=== PATIENT | female | born 1980 | race Caucasian/White ===

== ENCOUNTER 2020-02-07 09:23 | Outpatient (CLI) | payer BC, SELFPAY ==
--- NOTE | 2020-02-07 10:22 | ECG_ITS ---
Measurements Intervals [place] Rate: 88 P: 49 AR: 120 QRS: 43 QRSD: 77 T: 46 QT: 357 QTc: 433 Interpretive Statements SINUS RHYTHM NORMAL ECG Electronically Signed On 02-07-2020 10:31:13 CDT by Ervin Resendiz D.O.
[2020-02-07 10:36] LABS: Blood Urea Nitrogen 11 mg/dL (7-17); Calcium 9.2 mg/dL (8.4-10.2); Carbon Dioxide 22 mmol/L (22-30); Chloride 109 mmol/L (98-107); Estimated Glomerular Filt Rate > 60; Glucose 112 mg/dL (65-105); Potassium 3.6 mmol/L (3.4-5.0); Sodium 139 mmol/L (137-145)
== END 2020-02-07 09:24 | disposition home or self-care (01) ==
LOC: ANHLAB 09:25
PROVIDERS: PCP Family Medicine; Visit Provider Anesthesiology
DX: Z79.899 Other long term (current) drug therapy (principal); Z98.890 Other specified postprocedural states
CPT/HCPCS: 36415; 80048; 93005

== ENCOUNTER 2020-02-13 00:12 | Outpatient (CLI) | payer BC, SELFPAY ==
[2020-02-13 15:58] LABS: SARS-CoV-2 RNA PCR Negative
== END 2020-02-13 00:13 | disposition home or self-care (01) ==
LOC: ANHCOVIDDT 00:12
PROVIDERS: PCP Family Medicine; Visit Provider Obstetrics & Gynecology
DX: Z01.818 Encounter for other preprocedural examination (principal); Z11.59 Encounter for screening for other viral diseases
CPT/HCPCS: 87635; C9803; U0003

== ENCOUNTER 2020-02-15 00:53 | Day surgery (SDC) | payer BC, SELFPAY ==
[2020-02-03 10:45] VITALS: BMI 41.5
[2020-02-15] VITALS (11 sets, daily range): BP systolic 109–131; BP diastolic 60–91; PULSE 61–105; RESP 9–24; TEMP 36–36.6; O2SAT 94–99; BMI 43.4
[2020-02-15] MEDS: LACTATED RINGERS 1,000 ML 30 ML IV CONT ×2 (07:15→10:02)
--- NOTE | 2020-02-15 07:15 | PM.IMHP ---
H&P: HPI History of Present Illness Chief complaint: Menorrhagia/Desires Sterilization Narrative: Mora Puente is a 39 year old female Para 2 with satisfied parity and desire for permanent sterilization. She has a long history of menorrhagia. She has been on control pills and it has helped some but periods still heavy. She declines IUD. She desires endometrial ablation. She has had a recent normal endometrial biopsy. She declines all other non-permanent forms of control. Declines vasectomy. Discussed different types of sterilization and she desires the bilateral salpingectomy. Review of Systems Review of Systems: All systems reviewed & are unremarkable except as noted in HPI and below Constitutional: Constitutional: Reports no additional constitutional complaints Cardiovascular: Cardiovascular: Denies chest pain and Denies dyspnea Respiratory: Respiratory: Reports no additional respiratory complaints, Reports cough, Denies dyspnea and Reports other Gastrointestinal: Gastrointestinal: Denies abdominal pain Genitourinary: Genitourinary: Reports no additional female genitourinary complaints, Reports as per HPI, Denies dyspareunia, Denies vaginal discharge, Denies vaginal dryness, Denies vaginal odor and Denies vaginal pruritus Psychiatric: Psychiatric: Reports no additional psychiatric complaints Hematologic/Lymphatic: Hematologic/Lymphatic: Reports no additional hematologic/lymphatic complaints [facility] Past Medical History Medical History (Updated 02/15/20 @ 08:24 by Mayo Mcmahan MD) Anxiety Encounter for sterilization Menorrhagia Sterilization consult Vaginal delivery Surgical History Surgical History History of cardiac radiofrequency ablation Social History Social History Smoking status: Never smoker Second hand tobacco smoke exposure: No Alcohol intake: current Meds Home Medications and Allergies Home Medications Medication Instructions Recorded Confirmed Type bupropion HCl 300 mg 24 hr tablet, 300 mg PO QAM #90 tablet 12/05/19 02/03/20 Rx extended release drospirenone (contraceptive) 4 mg 4 mg PO DAILY #3 packet 12/13/19 02/03/20 Rx (28) tablet alprazolam 0.5 mg tablet 0.5 mg PO TID PRN #30 tablet 01/17/20 02/03/20 Rx bupropion HCl 150 mg 24 hr tablet, 150 mg PO QAM #90 tablet 01/17/20 02/03/20 Rx extended release spironolactone 25 mg tablet 25 mg PO DAILY #90 tablet 01/25/20 02/03/20 Rx Allergies Allergy/AdvReac Type Severity Reaction Status Date / Time morphine Allergy Unknown Vomiting Verified 02/15/20 07:27 Exam Const: General: healthy appearing, no acute distress, alert and awake Nutritional Appearance: well nourished Orientation/consciousness: oriented to person, oriented to place, oriented to time and patient oriented x3 Limitations: no limitations HENMT: Head: normal to inspection Ears: hearing grossly normal bilaterally Eyes: General: appearance normal, both eyes and all related structures Resp: Effort & Inspection: normal respiratory effort and other Auscultation: clear to auscultation bilaterally Cardio: Rate: regular rate Rhythm: regular rhythm GI: Inspection: normal to inspection GI Palp: Yes No hepatosplenomegaly present Rectal Exam: visual inspection normal : General: Yes bladder normal to palpation External Female Exam: normal external appearance and normal appearance of the urethra Speculum Exam - Vagina: normal appearance of the vagina Speculum Exam - Cervix: normal appearance of the cervix Bimanual exam- vagina & uterus: normal bimanual exam, uterine size normal, bladder normal to palpation, consistency normal, non-tender and no cervical motion tenderness Bimanual Exam- Adnexa, other: no masses, No adnexal tenderness and cystocele OB/external & speculum: external exam normal Skin: General skin exam: normal color Neuro:
--- NOTE | 2020-02-15 07:53 | WPDANESEPPF ---
Anes - Initial Pre Proc Eval Procedure: Operation Date: 02/15/20 08:30 Proposed Procedures p Laparoscopic Bilateral Salpingectomy, Hysteroscopy Dilation and Curettage, Cris Endometrial Ablation, Possible Myosure - Mayo Mcmahna MD Date/Time: 02/15/20 07:53 Surgeon: Mayo Mcmahan MD Pre Op Diagnosis: Menorrhagia/Desires Sterilization Patient Data Age: 39 Gender: F Height: 5 ft 1 in Weight: 104.2 kg Allergies Allergy/AdvReac Type Severity Reaction Status Date / Time morphine Allergy Unknown Vomiting Verified 02/15/20 07:27 Home Medications Medication Instructions Recorded Confirmed Type bupropion HCl 300 mg 24 hr tablet, 300 mg PO QAM #90 tablet 12/05/19 02/15/20 Rx extended release drospirenone (contraceptive) 4 mg 4 mg PO DAILY #3 packet 12/13/19 02/15/20 Rx (28) tablet alprazolam 0.5 mg tablet 0.5 mg PO TID PRN #30 tablet 01/17/20 02/15/20 Rx bupropion HCl 150 mg 24 hr tablet, 150 mg PO QAM #90 tablet 01/17/20 02/15/20 Rx extended release spironolactone 25 mg tablet 25 mg PO DAILY #90 tablet 01/25/20 02/15/20 Rx Patient hx anesthesia problems: none Family hx anesthesia problems: none PMFSH Past Medical History Medical History Anxiety Menorrhagia Sterilization consult Vaginal delivery Surgical History Surgical History History of cardiac radiofrequency ablation Family History Family History Father Hypertension Family history of diabetes mellitus in first degree relative Family history of cardiovascular disease Grandparent Cerebrovascular accident, Onset Age: 73 Family history of cardiovascular disease Mother Asthma Sibling Family history of mental disorder Family history of bipolar disorder Other Depression Diabetes mellitus Social History Social History Smoking status: Never smoker Second hand tobacco smoke exposure: No Alcohol intake: current Anes - Eval Final PreProcedure Day of Procedure 06/10/20 07:53 Patient weight: morbidly obese Heart: regular rate and rhythm Lungs: clear to auscultation Airway: Mallampati scale class II Neurological: alert and oriented Last oral intake: >/= 8 hours ASA classification: III Emergent: no Anesthesia type and monitoring: general ETT and standard monitoring Informed Consent: The patient's anesthetic plan and its attendant risks and benefits were discussed with the patient/family/POA. Questions were solicited and answers provided to the satisfaction of the patient/family/POA.
[2020-02-15] MEDS: ceFAZolin 2 GM/D5W 50 ML 2 GM/50 ML BAG IVPB (08:47)
[2020-02-15] MEDS: KETOROLAC 30 MG/ML VIAL (*BKC) IV PUSH (09:49)
--- NOTE | 2020-02-15 10:14 | PM.PROC ---
Procedure Note - Detailed Date of procedure: 02/15/20 Pre-op diagnosis: Menorrhagia/Desires Sterilization Procedure performed: 1. Laparoscopic bilateral salpingectomy. 2. Laparoscopic lysis of adhesions. 3. Cris endometrial ablation. 4. Diagnostic hysteroscopy. Description of procedure: After informed consent was obtained patient was taken to the operating room and general endotracheal anesthesia was administered. She was placed in low lithotomy need prep prepped sterile fashion. Attention was turned to the vagina speculum inserted single-tooth tenaculum placed on anterior lip of the cervix. [place] uterine manipulator placed into the cervical canal. The speculum was removed. Attention was then turned to the abdomen. With sterile gloves a vertical incision was made at the umbilicus and a Veress needle was inserted into the abdomen confirmation into the abdomen obtained with free flow of fluid and normal peritoneal pressures. A pneumoperitoneum of 15 mm per mercury was obtained. The 5 mm port was inserted under laparoscopic visualization. Patient was placed in Trendelenburg position. Attention was turned to the left side of the abdomen and a 5 mm port was inserted under laparoscopic visualization. The pelvic organs were visualized. Attention was turned to the right side of the abdomen and another 5 mm port was inserted under laparoscopic visualization. Using the LigaSure the right fallopian tube was excised to near the entrance to the uterus. This was removed through the port. There was a band of adhesion of the mid left fallopian tube attached to the left sidewall which the adhesion was lysed and this mobilized the distal fallopian tube. Attention was then turned to the left fallopian tube which was grabbed at the distal end and cauterized from the mesosalpinx to within a cm of the entrance to the entrance to the uterus. The fallopian tube was removed through the 5 mm port. Hemostasis was noted at both sites. Patient was taken out of Trendelenburg position the pneumoperitoneum was released and the skin incisions were closed in a subcuticular fashion with 4 O Vicryl. Attention was then turned to vagina. Speculum was inserted. Single-tooth tenaculum placed on the anterior lip of the cervix. The uterus was sounded to 8 cm. The cervix was dilated to an 8 Barnes dilator. The cervical length was 3cm. The uterine length 5cm. The hysteroscope was inserted into the cavity. The findings were a normal uterine cavity. The hysteroscope was removed. The Cris ablation instrument was inserted into the cavity. Cavity assessment was performed and confirmed intact. The ablation was enabled. After 120 seconds the Cris stopped. The ablation instrument was removed. The hysteroscope was inserted and there was noted to be good eschar with the cavity. The hysteroscope was removed the single-tooth tenaculum was removed hemostasis was noted at the tenaculum site. Sponge count correct. The patient taken to recovery in stable condition. Anesthesia: GETA Surgeon: Mayo Mcmahan MD Estimated blood loss (mL): 5 Drains: No Packing: No Pathology: yes (Right and left fallopian tube) Complications: No immediate complications Condition: stable Disposition: PACU Findings: Uterus fallopian tubes and ovaries normal. Scar tissue of the distal left fallopian tube to left sidewall. Normal uterine cavity. Good eschar noted post ablation.
[2020-02-15] MEDS: ONDANSETRON INJ 4 MG/2 ML VIAL IV PUSH (10:41)
[2020-02-15] MEDS: SCOPOLAMINE 1.5 MG PATCH TRANSDERM (10:54)
== END 2020-02-15 13:01 | disposition home or self-care (01) ==
PROVIDERS: PCP Family Medicine; Visit Provider Obstetrics & Gynecology
PROC: 0UDB8ZZ Extraction of Endometrium, Via Natural or Artificial Opening Endoscopic (ICD-10-PCS; CPT 58558; principal; 2020-02-15 08:30)
DX: Z30.2 Encounter for sterilization (principal); N92.0 Excessive and frequent menstruation with regular cycle; N73.6 Female pelvic peritoneal adhesions (postinfective); E66.01 Morbid (severe) obesity due to excess calories; Z68.41 Body mass index [BMI] 40.0-44.9, adult; Z88.6 Allergy status to analgesic agent
CPT/HCPCS: 58661; 58353; 58555; 88302; A9270; J0131; J0690; J1100; J1200; J1885; J2250; J2405; J3010; J7120

== ENCOUNTER 2021-08-15 16:46 | Emergency (ER) | payer BC, SELFPAY ==
[2021-08-15 17:15] VITALS: BP 112/73; PULSE 95; RESP 20; TEMP 36.6; O2SAT 100
--- NOTE | 2021-08-15 17:34 | ED.EYEPROB ---
HPI - Eye Problem General Chief complaint: Eye Problems Stated complaint: Lt Eye Irritation History of Present Illness HPI Narrative: This a 41-year-old female that presents to the urgent care complaining of left eye pain states that she felt like she had eyelash in her eye it has been bothering her all day. Patient states that it hurts when she closes her eye and when she blinks her eyes. Patient denies wearing contact states that she wears glasses Related Data Allergies Allergy/AdvReac Type Severity Reaction Status Date / Time morphine Allergy Intermediate Vomiting Verified 08/15/21 17:33 Review of Systems Review of Systems: left eye hurts feels like something is in it. All systems reviewed & are unremarkable except as noted in HPI and below PMFSH Past Medical History Medical History Anxiety Encounter for sterilization Menorrhagia Sterilization consult Vaginal delivery Surgical History Surgical History History of bilateral salpingectomy History of cardiac radiofrequency ablation History of endometrial ablation Family History Family History Father Hypertension Family history of diabetes mellitus in first degree relative Family history of cardiovascular disease Grandparent Cerebrovascular accident, Onset Age: 73 Family history of cardiovascular disease Mother Asthma Sibling Family history of mental disorder Family history of bipolar disorder Other Depression Diabetes mellitus Social History Social History (Updated 07/30/21 @ 15:26 by Krystle Travis [facility]) Second hand tobacco smoke exposure: No Alcohol intake: current Comments At time as signature, I have reviewed and agree with nursing past medical, social, surgical and family history. Please see nursing chart for further information. There is no relevant family history pertinent to the presenting complaint. Exam Narrative: GENERAL:Well-appearing, well-nourished, and in no acute distress. HEAD:Normocephalic EYES: PERRLA left erythema ENT: Nares clear, no rhinorrhea or epistaxis. Mucous membranes moist. CHEST: . No respiratory distress. EXTREMITIES: Normal range of motion. No edema. SKIN: Warm, dry, no rash. NEURO: No focal deficits. Alert and oriented x3. After eye exam she has a corneal abrasion and conjunctival Vitas Course Vital Signs Vital signs: Vital Signs Temperature 97.9 F 08/15/21 17:15 Pulse Rate 95 08/15/21 17:15 Respiratory Rate 20 08/15/21 17:15 Blood Pressure 112/73 08/15/21 17:15 Pulse Oximetry 100 08/15/21 17:15 Temperature 97.9 F 08/15/21 17:15 Pulse Rate 95 08/15/21 17:15 Respiratory Rate 20 08/15/21 17:15 Blood Pressure 112/73 08/15/21 17:15 Pulse Oximetry 100 08/15/21 17:15 Procedures FB Removal Eye Foreign Body #1: Foreign Body Removal Date: 08/15/21 Foreign Body Removal Time: 17:30 Time Out performed: Yes Location: eye (L) Topical anesthetic used: tetracaine Evidence of corneal penetration: Yes Technique: irrigation and eye wash bottle Procedure performed under: direct visualization with magnification and slit-lamp Post-procedure medication: topical anesthetic Patient tolerated procedure: well and no complications Foreign Body Removal Narrative: Noted noted in patient tolerated well MDM - Eye Problem Differential Diagnosis Differential diagnosis: Likely corneal abrasion, conjunctivitis, acute iritis, periorbital cellulitis, subconjunctival hemorrhage and corneal ulcer Discharge Plan Discharge Clinical Impression: Scleral disorder Corneal abrasion Qualifiers: Encounter type: initial encounter Laterality: left Qualified Code(s): S05.02XA - Injury of conjunctiva and corneal abrasion without foreign body, left eye, initial encounter
== END 2021-08-15 18:04 | disposition home or self-care (01) ==
PROVIDERS: Emergency Provider Nurse Practitioner Family; PCP Family Medicine
DX: S05.02XA Injury of conjunctiva and corneal abrasion without foreign body, left eye, initial encounter (principal); X58.XXXA Exposure to other specified factors, initial encounter
CPT/HCPCS: 99213; A9270; G0463

== ENCOUNTER 2022-01-10 10:57 | Outpatient (CLI) | payer BC, SELFPAY ==
--- NOTE | ~2022-01-10 | MM_ITS ---
EXAMINATION: MM screening tamela BI w dallin HISTORY: Screening mammogram TECHNIQUE: Craniocaudal and mediolateral oblique 3-D tomosynthesis images were obtained and synthetic 2-D images were generated. CAD analysis was submitted and interpreted. COMPARISON: No prior mammogram is available for comparison at this institution. BREAST PARENCHYMAL COMPOSITION: There are scattered areas of fibroglandular density. FINDINGS: There is no evidence of suspicious mass, calcification, or architectural distortion to sugg est malignancy in either breast. There has been no suspicious interval change. IMPRESSION: 1. No mammographic evidence of malignancy. 2. Recommend routine screening mammography in one year. BI-RADS Category 1: Negative Reviewed, dictated and finalized at location A.
== END 2022-01-10 10:58 | disposition home or self-care (01) ==
PROVIDERS: PCP Family Medicine; Visit Provider Obstetrics & Gynecology
DX: Z12.31 Encounter for screening mammogram for malignant neoplasm of breast (principal)
CPT/HCPCS: 77063; 77067

== ENCOUNTER 2022-11-27 08:39 | Outpatient (CLI) | payer BC, SELFPAY ==
--- NOTE | 2022-12-25 11:19 | WPDSLEEPSTUD ---
Sleep Study Date of Study: 11/27/22 Ordering Provider: SUNITA Jauregui Interpreting Physician: Keren Beltran MD Sleep Study Type: Polysomnogram Height: 1.55 m Weight: 113.398 kg Body Mass Index: 47.2 Neck Circumference (inches): 16.5 [place]: 15 Reason for Sleep Study Hypersomnolence Sleep History Mora Alford is a 42-year-old woman with anxiety and treatment-resistant depression, PTSD, and hypertension; she has problems waking multiple times at night to use the bathroom, no matter how much fluid restriction she observes. She has fatigue during the day and needs a nap to get through some days. This has been going on longer than 2 years. She has difficulty waking in the morning. She has had a previous sleep study and was given sleep hygiene information. She never awakens from sleep feeling short of breath. She rarely awakens at night with heartburn, belching or coughing. She frequently snores loudly enough that others complain. She frequently has difficulty sleeping with a cold. She does not wake up gasping for breath at night. She does not notice her heart pounding or beating irregularly at night. She occasionally sweats excessively at night. she occasionally falls asleep during the day, rarely involuntarily, rarely while driving. She does not have loss of muscle tone with strong emotion. She frequently has daytime difficulties due to excessive daytime sleepiness. 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 She does not feel paralyzed on waking or falling asleep. She rarely has vivid dreamlike scenes on waking or falling asleep. She does not feel afraid to go to sleep. She occasionally has nightmares. She frequently remembers her dreams. She occasionally has racing thoughts. She occasionally has feelings of sadness, depression and anxiety. She occasionally has muscular tension. She occasionally notices parts of her body jerking. She rarely kicks at night. She does not have crawling and aching feelings in her legs or any kind of leg pain at night. She does not grind her teeth during sleep. She frequently is bothered by pain during the day. She rarely is awakened by pain at night. She frequently wakes up feeling stiff in the morning occasionally with sore achy muscles and pain in the neck and spine. She has fatigue, sexual problems, memory concentration difficulties, insomnia and she takes antacids regularly. Normal bedtime is between 9:30 p.m. and 10:00 p.m., falling asleep within 10 minutes, typically waking 2-5 times at night to go to the bathroom. She is able to return to sleep within 5 minutes. She wakes the morning at 6:30 a.m.. Her weekend schedule is similar, bedtime is 10:00 p.m. to 11:00 p.m., waking at 7:30 a.m.. She estimates getting 7-8 hours of sleep at night. She takes naps in the afternoon or evening. A short nap is not always refreshing. She is drowsy for 3 hours after waking. She feels better in the afternoon compared to other times of day. Habits: Never smoked tobacco. Caffeine 24 oz of diet soda daily. No alcohol or recreational substances. [facility] Past Medical History Medical History Anxiety Encounter for sterilization Essential (primary) hypertension Menorrhagia Obesity Sterilization consult Vaginal delivery Surgical History Surgical History History of bilateral salpingectomy History of cardiac radiofrequency ablation History of carpal tunnel surgery History of endometrial ablation Family History Family History Father Hypertension Family history of diabetes mellitus in first degree relative Family history of cardiovascular disease Grandparent Cerebrovascular accident, Onset Age: 73 Family history of cardiovascular disease Mother Asthma Sibling Family history of mental disorder Family history of bipolar
[2022-12-25 11:41] VITALS: BMI 47.2
--- NOTE | 2023-04-17 12:41 | SLEEP ---
NEW CALLS [id number]
== END 2022-11-28 08:01 | disposition home or self-care (01) ==
LOC: ANHCSM 08:40
PROVIDERS: PCP Emergency Medicine; Visit Provider Physician Assistant
DX: G47.33 Obstructive sleep apnea (adult) (pediatric) (principal); G47.10 Hypersomnia, unspecified; I10 Essential (primary) hypertension; E66.9 Obesity, unspecified; Z68.42 Body mass index [BMI] 45.0-49.9, adult
CPT/HCPCS: 95810

== ENCOUNTER 2023-01-27 08:10 | Outpatient (CLI) | payer BC, SELFPAY ==
--- NOTE | 2023-02-23 11:35 | WPDSLEEPSTUD ---
Sleep Study Date of Study: 01/27/23 Ordering Provider: SUNITA Jauregui Interpreting Physician: Keren Beltran MD Sleep Study Type: CPAP Titration Height: 1.55 m Weight: 115.212 kg Body Mass Index: 47.9 Neck Circumference (inches): 16.5 [place]: 15 Reason for Sleep Study Hypersomnolence * PSG 11/27/22 showed mild obstructive sleep apnea with AHI 12.9 and desaturation to 87%, severe in REM (AHI 27.8) and severe in supine (AHI 38). Sleep History Mora Alford is a 42-year-old woman with a 11/27/2022 PSG showing AHI 12.9 and desaturation to 87%, severe in REM, AHI 27.8 and severe in REM 38. She has anxiety and treatment-resistant depression,? PTSD, and hypertension;? she has problems waking multiple times at night to use the bathroom, no matter how much fluid restriction she observes.? She has fatigue during the day and needs a nap to get through some days.? This has been going on longer than 2 years.? She has difficulty waking in the morning.? She has had a previous sleep study and was given sleep hygiene information.? She never awakens from sleep feeling short of breath.? She rarely awakens at night with heartburn, belching or coughing.? She frequently snores loudly enough that others complain.? She frequently has difficulty sleeping with a cold.? She does not wake up gasping for breath at night.? She does not notice her heart pounding or beating irregularly at night.? She occasionally sweats excessively at night.? she occasionally falls asleep during the day, rarely involuntarily, rarely while driving.? She does not have loss of muscle tone with strong emotion.? She frequently has daytime difficulties due to excessive daytime sleepiness.? 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 She does not feel paralyzed on waking or falling asleep.? She rarely has vivid dreamlike scenes on waking or falling asleep.? She does not feel afraid to go to sleep.? She occasionally has nightmares.? She frequently remembers her dreams.? She occasionally has racing thoughts.? She occasionally has feelings of sadness, depression and anxiety.? She occasionally has muscular tension.? She occasionally notices parts of her body jerking.? She rarely kicks at night.? She does?not have crawling and aching feelings in her legs or any kind of leg pain at night.? She does not grind her teeth during sleep.? She frequently is bothered by pain during the day.? She rarely is awakened by pain at night.? She frequently wakes up feeling stiff in the morning occasionally with sore achy muscles and pain in the neck and spine.? She has fatigue, sexual problems, memory concentration difficulties, insomnia and she takes antacids regularly. Normal bedtime is between 9:30 p.m. and 10:00 p.m., falling asleep within 10 minutes, typically waking 2-5 times at night to go to the bathroom.? She is able to return to sleep within 5 minutes.? She wakes the morning at 6:30 a.m..? Her weekend schedule is similar, bedtime is 10:00 p.m. to 11:00 p.m., waking at 7:30 a.m..? She estimates getting 7-8 hours of sleep at night.? She takes naps in the afternoon or evening.? A short nap is not always refreshing.? She is drowsy for 3 hours after waking.? She feels better in the afternoon compared to other times of day. Habits: ? Never smoked tobacco.? Caffeine 24 oz of diet soda daily.? No alcohol or recreational substances. [facility] Past Medical History Medical History Anxiety Encounter for sterilization Essential (primary) hypertension Menorrhagia Obesity Sterilization consult Vaginal delivery Surgical History Surgical History History of bilateral salpingectomy History of cardiac radiofrequency ablation History of carpal tunnel surgery History of endometrial ablation Family History Family History Father Hypertension Family history of diabetes celestine
[2023-02-23 12:07] VITALS: BMI 47.9
== END 2023-01-28 07:06 | disposition home or self-care (01) ==
LOC: ANHCSM 08:10
PROVIDERS: PCP Emergency Medicine; Visit Provider Physician Assistant
DX: G47.33 Obstructive sleep apnea (adult) (pediatric) (principal)
CPT/HCPCS: 95811